=== PATIENT | male | born 1950 | race Caucasian/White ===

== ENCOUNTER 2025-03-22 08:49 | Outpatient (AMB) | payer MEDICARE, SELFPAY ==
--- NOTE | 2025-03-22 08:50 | A.OFFVIS_ITS ---
Vital Signs 03/22/25 09:06 Height 5 ft 9 in Weight 171 lb BMI 25.2 BP 136/80 Blood Pressure Location Rt brachial Position Sitting Pulse 82 Pulse Source Pulse Oximeter Pulse Oximetry (%) 98 Oxygen Delivery Method Room Air Intake Visit Reasons: colo screening Intake Note: New pt for recall colo screening. CC; Cotton Jammer Required: No Accompanied by: Self / Same As Patient Allergies egg (EGG) Allergy (Severe, Unverified 05/18/20 15:52) GI PAIN eggs Allergy (Unknown, Uncoded 05/04/15 00:00) HPI HPI colo screening: Details: 74 year old? male with past medical history of diabetes, pancreatitis, hyperlipidemia, AAA 4.6 x 2.6 cm is here today for pre colonoscopy screening.? Patient was sent to us by his PCP.? Patient had colonoscopy in August of 2014, 1 hyperplastic polyps found. Patient denies any gastrointestinal symptoms in the past or at present.? Denies any personal or family history of gastrointestinal disease, colon polyps, or CRC.? Denies history of difficulty with sedation or anesthesia in the past.? Negative for history of sleep apnea.? Denies any history of cardiac, renal, pulmonary, or hepatic disease.?? No history of infectious? diseases like hepatitis A, B, C, HIV or tuberculosis.? Patient is low-dose aspirin [facility] Medical History Pancreatitis Sinus bradycardia BPH (benign prostatic hyperplasia) Abdominal aortic aneurysm Diabetes mellitus BAY (nonalcoholic steatohepatitis) Surgical History Nasal polyps H/O left knee surgery S/P rotator cuff repair Social History Alcohol intake: former Patient Tobacco Use Status: Former Tobacco user Review of Systems Const Denies weight gain and Denies weight loss ENT Reports no additional complaints, Denies dysphagia and Denies odynophagia Card Reports no additional complaints Resp Reports no additional complaints GI Denies abdominal pain, Denies belching, Denies melena, Denies bloating, Denies change in bowel habits, Denies dysphagia, Denies excessive flatus, Denies dyspepsia, Denies heartburn, Denies diarrhea, Denies loose stools, Denies nausea, Denies odynophagia and Denies vomiting Reports no additional complaints Musc Reports no additional complaints Neuro Reports no additional complaints Psych Reports no additional complaints Endo Reports no additional complaints Physical Exam Vital Signs: Last Vital Signs Pulse 82 03/22/25 09:06 BP 136/80 03/22/25 09:06 Pulse Ox 98 03/22/25 09:06 Oxygen Delivery Method Room Air 03/22/25 09:06 BMI result Body Mass Index 25.2 Const General: healthy appearing, no acute distress and well developed Nutritional Appearance: well nourished Orientation/consciousness: patient oriented x3 Resp Effort & Inspection: normal respiratory effort, able to speak in complete sentences, no tracheal deviation and symmetric chest movement Auscultation: clear to auscultation bilaterally Cardio Rate: regular rate GI Inspection: Yes normal to inspection and No distended Palpation (GI): Soft to palpation, not firm, nontender and No hepatosplenomegaly present Auscultation: normal bowel sounds General: Yes no CVA tenderness Back/Spine/Pelvis Back: no CVA tenderness Skin General skin exam: elasticity normal, turgor normal and dry skin Neuro General: patient oriented x3 Psych Appearance: grossly normal Mental Status: mental status grossly normal Assessment & Plan Assessment & Plan (1) Screen for colon cancer: Code(s): Z12.11 - Encounter for screening for malignant neoplasm of colon Plan Patient denies any GI, cardiac or respiratory symptoms.? Denies any issues with anesthesia in the past.? Denies any history of sleep apnea.? No history infectious diseases in the past or present.? Not on any anticoagulation therapy.? Patient denies any cardiac or respiratory symptoms. No family history of colon cancer.? Patient denies melena, hematochezia, unintentional weight loss or ribbon like stools.? Discussed at length the pre-procedure,? prep, diet & medications as well as what to expect prior, during and after the procedure.?? Stressed the importance of good bowel prep.? Recommended the use of Vaseline or Calmoseptine OTC & baby wipes with bowel movements to promote comfort.? ?Patient verbalizes understanding and agrees to plan of care.? He was given the opportunity to ask questions and all questions answered.? We will see him after the procedure.? Medications: New bisacodyl (Dulcolax (bisacodyl)) take 4 tabs at noon the day before your colonoscopy 20 mg (4 x 5 mg) PO ONCE 4 tabs 0RF constipation 1 day Z12.11 - Encounter for screening for malignant neoplasm of colon polyethylene glycol 3350 (Miralax) As directed by gastroenterology department at [facility] 238 grams PO ONCE 238 grams 0RF Z12.11 - Encounter for screening for malignant neoplasm of colon Coding Level of Care Code New Pt Level 3 (61275) Diagnoses Screen for colon cancer Z12.11 Time Spent (min) 40 Comment 30 minutes spent with patient and additional 10 minutes spent reviewing his records
[2025-03-22 09:06] VITALS: BP 136/80; PULSE 82; O2SAT 98; BMI 25.2
--- OUTSIDE RECORDS SUMMARY | 2025-03-22 09:08 | XMS_ITS | Encounter Summary ---
Author Organization [facility] Address [address] [place] [address] Care Team Providers Care Marketing Segment Manager Name Role Phone Frankie Montgomery Primary Care Provider [phone] Encounter Details Date Type Department Care Team ([facility] Contact Info) Description 08/23/2020 Orders Only [facility] Interventional Radiology [address] [place] [address] Yao Driscoll MD [address] [place] [address] Social History Tobacco Use Types Packs/Day Years Used Date Smoking Tobacco: Former Cigarettes Q uit: 10/30/2006 Smokeless Tobacco: Never Comments:: Alcohol Use Standard Drinks/Week Comments Yes 0 (1 standard drink = 0.6 oz pur e alcohol) Sex and Gender Information Value Date Recorded Sex Assigned at Male 11/06/2021 1:20 PM EST Legal Sex Male 6:28 PM EDT Gender Identity Male 11/06/2021 1:20 PM EST Sexual Orientation Straight 11/06/2021 1: 20 PM EST documented as of this encounter Plan of Treatment Not on file documented as of this encounter Visit Diagnoses Not on filedocumented in this encounter Care Teams Marketing Segment Manager Relationship Specialty Start Date End Date Frankie Montgomery [address] [place] [id number] PCP - General 03/20/17 documented as of this encounter
--- OUTSIDE RECORDS SUMMARY | 2025-03-22 09:08 | XMS_ITS | Clinical Summary ---
Author Organization [address] Address [address] [place] [address] Phone Care Team Providers Care Vice President Of Sales Name Role Phone Frankie Montgomery DO Primary Care Provider [phone] Allergies Active Allergy Reactions Criticality Noted Date Comments Egg Other 09/24/2024 Gastric Disorder Medications meloxicam (MOBIC) 15 mg tablet Take 1 tablet (15 mg total) by mouth 1 (one) time each day. Active aspirin 81 mg EC tablet Take 1 tablet (81 mg total) by mouth 1 (one) time each day. 9 Active atorvastatin (LIPITOR) 40 mg tablet Take 1 tablet (40 mg total) by mouth 1 (one) time each day. 9 Active metFORMIN (GLUCOPHAGE) 1,000 mg tablet Take 1 tablet (1,000 mg total) by mouth 2 (two) times a day. Active insulin glargine,hum.re c.anlog (Basaglar KwikPen U-100 Insulin) 100 unit/mL (3 mL) injection pen Inject 30 Units under the skin at bedtime. Active blood sugar diagnostic (FreeStyle Lite Strips) test strip 100 each by Other route 1 (one) time each day. Checking sugars once a day Active blood-glucose meter kit 1 each. 3 Active FreeStyle Lancets 28 gauge lancets 100 each by Other route. Active BD Alisa 2nd Gen Pen Needle 32 gauge x 5/32 needle USE DIRECTED EVERY NIGHT WITH LANTUS 90 DAYS 4 Active glipiZIDE (GLUCOTROL) 5 mg tablet Take 1 tablet daily before breakfast 30 each 5 5 Active Encounters Date Type Department Care Team Description 12/23/2024 9:40 AM EDT Office Visit [address] [id number] Nova Magana PA Type 2 diabetes mellitus with hyperglycemia, with long-term current use of insulin ([facility] V24, [facility] V28) (Primary Dx); Hyperlipidemia, unspecified hyperlipidemia type from Last 3 Months Social History Tobacco Use Types Packs/Day Years Used Date Smoking Tobacco: Former Cigarettes Passive Smoke Exposure: Never Smokeless Tobacco: Former Tobacco Cessation:Counseling Given: No Alcohol Use Standard Drinks/Week Comments Not Currently 0 (1 standard drink = 0.6 oz pur e alcohol) Sex and Gender Information Value Date Recorded Sex Assigned at Not on file Legal Sex Male 11:17 AM EST Gender Identity Not on file Sexual Orientation Not on file Obstetrics History Last Filed Vital Signs Vital Sign Reading Time Taken Comments Blood Pressure 137/72 12/23/2024 10:00 AM EDT Pulse 92 12/23/2024 10:00 AM EDT Temperature 35.6 C (96.1 F) 12/23/2024 10:00 AM EDT Respiratory Rate - - Oxygen Saturation 96% 12/23/2024 10:00 AM EDT Inhaled Oxygen Concentration - - Weight 86.2 kg (190 lb) 12/23/2024 10:00 AM EDT Height 175.3 cm (5' 9 ) 12/23/2024 10:00 AM EDT Body Mass Index 28.06 12/23/2024 10:00 AM EDT Plan of Treatment Upcoming Encounters Date Type Department Care Team (Late st Contact Info) Description 07/15/2025 9:40 AM EST Office Visit Endocrinology - [place] [address], [place] [phone] Nova Magana PA [address] [place] [address] Health Maintenance Due Date Last Done Comments Diabetes: Annual Foot Exam 1962 Diabetes: Annual Retina Eye Exam 1962 Pneumococcal Vaccine: 50+ Years (1 of 2 - PCV) 1971 Zoster Vaccines (1 of 2) 2002 RSV Immunization Adult Patients (1 - Risk 60-74 years 1-dose series) 2012 DTaP,Tdap,and Td Vaccines (2 - Td or Tdap) 02/02/2019 02/02/2009 Colorectal Cancer Screening: Colonoscopy 07/30/2022 Falls Risk Assessment 07/30/2022 Hepatitis C Screening 07/30/2022 Medicare Annual Wellness Visit 07/30/2022 Social Influencers of Health Screening 07/30/2022 COVID-19 Vaccine (4 - 2023-2 5 season) 2024 09/19/2021, 12/14/2020, 11/22/2020 Depression Screening 09/01/2024 Diabetes: Annual Urine Albumin-Creatinine Ratio (uACR) 09/20/2024 Influenza Vaccine (#1) 2025 , 06/18/2023, 05/27/2022 Diabetes: Blood Sugar Contro l Test (HGBA1C) 06/24/2025 12/23/2024, 09/20/2024 Diabetes: Annual GFR (Glomerular Filtration Rate) 07/13/2025 07/13/2024 Hypertension/CHF/CAD Annual BMP Blood Test 07/13/2025 07/13/2024 Cholesterol Screening (Lipid Panel) 09/20/2029 09/20/2024 HIB Vaccines Aged Out No longer eligi ble based on patient's age to complete this topic HPV Vaccines Aged Out No longer eligi ble based on patient's age to complete this topic Hepatitis A Vaccines Aged Out No long er eligible based on patient's age to complete this topic Hepatitis B Vaccines Aged Out No long er eligible based on patient's age to complete this topic IPV Vaccines Aged Out No longer eligi ble based on patient's age to complete this topic MMR Vaccines Aged Out No longer eligi ble based on patient's age to complete this topic Meningococcal ACWY Vaccine Aged Out N o longer eligible based on patient's age to complete this topic Meningococcal B Vaccine Aged Out No l onger eligible based on patient's age to complete this topic RSV Immunization Patients Under 20 months Aged Out No longer eligible b ased on patient's age to complete this topic Varicella Vaccines Aged Out No longer eligible based on patient's age to complete this topic Procedures Procedure Name Priority Date/Time Associated Diagnosis Comments HEMOGLOBIN A1C Routine 12/23/2024 11:02 AM EDT Type 2 diabetes mellitus with hyperglycemia, with long-term current use of insulin ([facility] V24, [facility] V28) LIPID PANEL WITH REFLEX TO DIRECT LDL Routine 09/20/2024 1:34 PM EST DM2 (diabetes mellitus, type 2) ([facility] V24, [facility] V28) HTN (hypertension) HLD (hyperlipidemia) CREATININE, SERUM Routine 07/13/2024 11: 52 AM EST Aneurysm of infrarenal abdominal aorta ([facility] V24) from Last 3 Months or Most Recently Relevant to Health Maintenance Results * (ABNORMAL) Hemoglobin A1c (12/23/2024 11:02 AM EDT) Hemoglobin A1C 8.8(H) <6.5 % LAB CHEMISTRY METHOD 12/23/2024 3:23 PM EDT [facility] Mean Bld Glu Estim. 206 mg/dL LAB CHEMISTRY METHOD 12/23/2024 3:23 PM EDT [facility] Blood Venous blood specimen / Unknown Venipuncture / Unknown 12/23/2024 11:02 AM EDT 12/23/2024 11:02 AM EDT us Nova POWELL LAB BLOOD ORDERABLES Final Resul t [facility] [address] [place] [address], * Lipid panel with reflex to direct LDL (09/20/2024 1:34 PM EST) Cholesterol 125 0 - 200 mg/dL LAB CHEMISTRY METHOD 09/20/2024 4:24 PM EST [facility] Triglycerides 95 0 - 150 mg/dL LAB CHEMISTRY METHOD 09/20/2024 4:24 PM EST [facility] HDL 46 >=40 mg/dL LAB CHEMISTRY METHOD 09/20/2024 4:24 PM EST [facility] LDL Calculated 60 0 - 100 mg/dL LAB CHEMISTRY METHOD 09/20/2024 4:24 PM EST [facility] VLDL Cholesterol Isaias 19 mg/dL LAB CHEMISTRY METHOD 09/20/2024 4:24 PM EST [facility] Non HDL Chol. (LDL+VLDL) 79 <145 mg/dL LAB CHEMISTRY METHOD 09/20/2024 4:24 PM EST [facility] Chol/HDL Ratio 2.7 0.0 - 4.4 LAB CHEMISTRY METHOD 09/20/2024 4:24 PM EST [facility] Blood Venous blood specimen / Unknown Venipuncture / Unknown 09/20/2024 1:34 PM EST 09/20/2024 1:34 PM EST Frankie Montgomery DO LAB BLOOD ORDERABLES Final Re sult Performing Organization Address City/[facility]/ZIP Co de Phone Number [facility] [address] [place] [address], [place] [phone] * Creatinine (07/13/2024 11:52 AM EST) Creatinine 0.93 0.70 - 1.30 mg/dL LAB CHEMISTRY METHOD 07/13/2024 3:36 PM EST [facility] eGFR 87 >=60 mL/min/1. 73m2 LAB CHEMISTRY METHOD 07/13/2024 3:36 PM EST [facility] Comment:Calculation based on the Chronic Kidney Disease Epidemiology Collaboration (CKD-EPI) equation refit without adjustment for race. Blood Venous blood specimen / Unknown Venipuncture / Unknown 07/13/2024 11:52 AM EST 07/13/2024 11:52 AM EST Eran Marie MD LAB BLOOD ORDERABLES Final Resu lt [facility] [address] [place] [address], [place] [phone] from Last 3 Months or Most Recently Relevant to Health Maintenance Insurance MEDICARE [facility] Care Teams Vice President Of Sales Relationship Specialty Start Date End Date Frankie Montgomery DO [address] [place] [phone] PCP - General Internal Medicine 07/13/24
== END 2025-03-22 09:27 | disposition home or self-care (01) ==
LOC: HO.HGI 08:50
PROVIDERS: PCP Internal Medicine; Visit Provider Nurse Practitioner Family
DX: Z01.818 Encounter for other preprocedural examination (principal); Z12.11 Encounter for screening for malignant neoplasm of colon; Z86.0102 Personal history of hyperplastic colon polyps
CPT/HCPCS: 99024

== ENCOUNTER → 2025-03-22 08:49 | Outpatient (BNVA) | payer MEDICARE, SELFPAY | PROVIDERS: PCP Internal Medicine; Visit Provider Nurse Practitioner Family | DX: Z12.11 Encounter for screening for malignant neoplasm of colon (principal) | CPT/HCPCS: 99212 ==